=== PATIENT | female | born 1965 | race Caucasian/White ===

== ENCOUNTER 2016-11-24 16:31 | Emergency (ER) | payer MEDICAID ==
[~2016-11-24] VITALS: Ht 149.9 cm; Wt 90.9 kg
[~2016-11-24 16:31] MED LIST: ALIGN PO; ASCO500T12 PO; CEFD300C37 PO; DOCU-30 PO; ERGO500017 PO; ESCI20TA10 PO; FURO-93 PO; GABA-827 PO; GI Cocktail PO; HYDR2TAB40 PO; LIDOCAINE 2% TP; LORA0.5T PO; MORP15TA3 PO; MORP30TA81 PO; ONDA4TAB7 PO; OREGANO OIL PO; PANT20TA2 PO; POLY17PO3 PO; PRED2.5T PO; PRED5TAB PO; SPIR50TA2 PO; TIZA2CAP PO; TIZA4TAB PO; [UNRECOGNIZED DRUG - CODE] IM
[2016-11-24] MEDS ORDERED: OXYcodone/APAP 5/325MG TABLET PO ONE (17:00)
[2016-11-24] MEDS ORDERED: OXYcodone/APAP 5/325MG TABLET ONE (17:03)
[2016-11-24] MEDS ORDERED: ONDANSETRON 2MG/ML, 2ML ONE (17:09)
[2016-11-24] MEDS ORDERED: ONDANSETRON 2MG/ML, 2ML IVPush ONE (17:30)
[2016-11-24] MEDS ORDERED: KETOROLAC 30 MG/1 ML ONE (18:59)
[2016-11-24] MEDS ORDERED: KETOROLAC 30 MG/1 ML IVPush ONE (19:00)
[2016-11-24 20:16] VITALS: BP 117/82
== END 2016-11-24 20:20 | disposition home or self-care (01) ==
LOC: ED 20:18
DX: S70.02XA Contusion of left hip, initial encounter (principal); S20.212A Contusion of left front wall of thorax, initial encounter; M19.90 Unspecified osteoarthritis, unspecified site; Z88.0 Allergy status to penicillin; Z88.1 Allergy status to other antibiotic agents; F17.210 Nicotine dependence, cigarettes, uncomplicated; F15.10 Other stimulant abuse, uncomplicated; Z88.8 Allergy status to other drugs, medicaments and biological substances; W10.9XXA Fall (on) (from) unspecified stairs and steps, initial encounter; Y93.89 Activity, other specified; Y99.8 Other external cause status; Y92.89 Other specified places as the place of occurrence of the external cause
CPT/HCPCS: 71101; 72110; 73502; 96374; 96375; 99284; J1885; J2405

== ENCOUNTER 2017-01-27 22:25 | Emergency (ER) | payer MEDICAID ==
[~2017-01-27] VITALS: Ht 149.9 cm; Wt 93.4 kg
[2017-01-27] MEDS ORDERED: SODIUM CHLORIDE 0.9% 1,000ML IVBOLUS ONE (23:00)
[2017-01-27] MEDS ORDERED: MORPHINE SULFATE 4 MG/ML, 1ML IVPush PRN (23:00)
[2017-01-27] MEDS ORDERED: ONDANSETRON 2MG/ML, 2ML IVPush ONE (23:00)
[2017-01-27] MEDS ORDERED: SODIUM CHLORIDE FLUSH 10ML SYR IVF ONE (23:00)
[2017-01-27] MEDS ORDERED: ONDANSETRON 2MG/ML, 2ML ONE (23:11)
[2017-01-27] MEDS ORDERED: MORPHINE SULFATE 4 MG/ML, 1ML ONE (23:11)
[2017-01-27 23:32] LABS: ASPARTATE AMINO TRANSFERASE 37 U/L (15-37); BLOOD UREA NITROGEN 16 mg/dL (7-18)
[2017-01-28 00:37] VITALS: BP 124/71
== END 2017-01-28 00:40 | disposition home or self-care (01) ==
LOC: ED 23:59
DX: K59.00 Constipation, unspecified (principal); R10.33 Periumbilical pain; R10.32 Left lower quadrant pain
CPT/HCPCS: 36415; 74020; 80053; 81003; 83690; 85025; 96361; 96374; 96375; 99285; J2405; J7030

== ENCOUNTER 2017-02-06 11:58 | Emergency (ER) | payer MEDICAID ==
[~2017-02-06] VITALS: Ht 149.9 cm; Wt 93.6 kg
[2017-02-06 12:00] VITALS: BP 150/90
[2017-02-06] MEDS ORDERED: ONDANSETRON ODT 4 MG ONE (12:48)
[2017-02-06] MEDS ORDERED: MECLIZINE CHEWABLE 25 MG TAB ONE (12:48)
[2017-02-06] MEDS ORDERED: MECLIZINE CHEWABLE 25 MG TAB PO ONE (13:00)
[2017-02-06] MEDS ORDERED: ONDANSETRON ODT 4 MG PO ONE (13:00)
== END 2017-02-06 13:22 | disposition home or self-care (01) ==
LOC: ED 12:39
DX: H66.91 Otitis media, unspecified, right ear (principal); Z90.49 Acquired absence of other specified parts of digestive tract; Z87.891 Personal history of nicotine dependence
CPT/HCPCS: 99283; Q0162

== ENCOUNTER 2017-02-07 20:06 | Emergency (ER) | payer MEDICAID ==
[~2017-02-07] VITALS: Ht 149.9 cm; Wt 93.5 kg
[2017-02-07] MEDS ORDERED: HYDROmorphone 1 MG/ML, 1ML IM ONE (20:30)
[2017-02-07] MEDS ORDERED: METHOCARBAMOL 750 MG TABLET PO ONE (20:30)
[2017-02-07] MEDS ORDERED: METHOCARBAMOL 750 MG TABLET ONE (20:54)
[2017-02-07] MEDS ORDERED: HYDROmorphone 1 MG/ML, 1ML ONE (20:54)
[2017-02-07 21:14] LABS: BLOOD UREA NITROGEN 18 mg/dL (7-18)
[2017-02-07] MEDS ORDERED: ONDANSETRON ODT 4 MG PO ONE (21:30)
[2017-02-07] MEDS ORDERED: ONDANSETRON ODT 4 MG ONE (21:32)
[2017-02-07 22:32] VITALS: BP 119/57
== END 2017-02-07 22:34 | disposition home or self-care (01) ==
LOC: ED 20:27
DX: M54.6 Pain in thoracic spine (principal); F17.200 Nicotine dependence, unspecified, uncomplicated; Z90.49 Acquired absence of other specified parts of digestive tract
CPT/HCPCS: 36415; 72072; 80048; 81003; 82040; 85025; 96372; 99285; J1170; Q0162

== ENCOUNTER 2017-08-08 17:48 | Emergency (ER) | payer MEDICAID ==
[~2017-08-08] VITALS: Ht 149.9 cm; Wt 95.8 kg
[~2017-08-08 17:48] MED LIST changes: +DOCU-131 PO; -DOCU-30 PO
[2017-08-08 17:49] VITALS: BP 154/91
[2017-08-08 19:34] LABS: BASOPHILS # (AUTO) 0.06 x10^3/uL (0-0.1); BASOPHILS % (AUTO) 1 % (0-1); EOSINOPHILS % (AUTO) 2 % (1-7); LYMPHOCYTES # (AUTO) 1.66 x10^3/uL (1-3.4); LYMPHOCYTES % (AUTO) 25 % (22-44); MD NO; MEAN CORPUSCULAR HEMOGLOBIN 28.5 pg (27.0-34.8); MEAN CORPUSCULAR VOLUME 86.6 fL (80-100); MEAN PLATELET VOLUME 8.6 fL (7.4-10.4); MONOCYTES % (AUTO) 11 % (2-9); NEUTROPHILS # (AUTO) 4.05 x10^3/uL (1.8-6.8); NEUTROPHILS % (AUTO) 62 % (42-75); PLATELET COUNT 144 x10^3/uL (130-400); RED BLOOD COUNT 4.86 x10^6/uL (3.82-5.3); RED CELL DISTRIBUTION WIDTH 15.3 % (9.6-15.2)
[2017-08-08 19:43] LABS: ALANINE AMINOTRANSFERASE 51 U/L (12-78); ALBUMIN 3.9 g/dL (3.4-5.0); ANION GAP 7 mmol/L (5-15); CALCIUM 8.5 mg/dL (8.5-10.1); CHLORIDE 103 mmol/L (98-107); CREATININE 1.07 mg/dL (0.55-1.02)
[2017-08-08 19:45] LABS: ALKALINE PHOSPHATASE 94 U/L (45-117); BILIRUBIN,TOTAL 0.6 mg/dL (0.2-1.0); TOTAL PROTEIN 7.8 g/dL (6.4-8.2)
[2017-08-08 20:10] LABS: CULTURE INDICATED? NO; HCG UR SG 1.015 (1.003-1.030); MICROSCOPIC NOT IND
[2017-08-08] MEDS ORDERED: OMNIPAQUE 350 MG/ML, 100ML BOTTLE ONE (23:14)
== END 2017-08-08 21:03 | disposition home or self-care (01) ==
LOC: ED 19:44
DX: R10.31 Right lower quadrant pain (principal); R10.32 Left lower quadrant pain; M54.5 Low back pain; Z90.49 Acquired absence of other specified parts of digestive tract
CPT/HCPCS: 36415; 74177; 80053; 81003; 81025; 83690; 85025; 99285; Q9967

== ENCOUNTER 2017-10-19 21:10 | Emergency (ER) | payer MEDICAID ==
[~2017-10-19] VITALS: Ht 149.9 cm; Wt 93.6 kg
[2017-10-19 21:59] LABS: MICROSCOPIC AUTO
[2017-10-19 22:03] LABS: BASOPHILS # (AUTO) 0.04 x10^3/uL (0-0.1); BASOPHILS % (AUTO) 1 % (0-1); EOSINOPHILS # (AUTO) 0.07 x10^3/uL (0-0.4); EOSINOPHILS % (AUTO) 1 % (1-7); LYMPHOCYTES # (AUTO) 1.42 x10^3/uL (1-3.4); LYMPHOCYTES % (AUTO) 21 % (22-44); MD NO; MEAN CORPUSCULAR HEMOGLOBIN 29.4 pg (27.0-34.8); MEAN CORPUSCULAR HGB CONC 33.8 g/dL (32.4-35.8); MEAN CORPUSCULAR VOLUME 86.8 fL (80-100); MEAN PLATELET VOLUME 8.7 fL (7.4-10.4); MONOCYTES # (AUTO) 0.85 x10^3/uL (0.2-0.8); MONOCYTES % (AUTO) 13 % (2-9); NEUTROPHILS # (AUTO) 4.25 x10^3/uL (1.8-6.8); NEUTROPHILS % (AUTO) 64 % (42-75); PLATELET COUNT 149 x10^3/uL (130-400); RED BLOOD COUNT 4.31 x10^6/uL (3.82-5.3); RED CELL DISTRIBUTION WIDTH 15.1 % (9.6-15.2)
[2017-10-19 22:07] LABS: CULTURE INDICATED? YES
[2017-10-19 22:14] LABS: ANION GAP 10 mmol/L (5-15); CALCIUM 8.7 mg/dL (8.5-10.1); CHLORIDE 101 mmol/L (98-107); CREATININE 1.36 mg/dL (0.55-1.02)
[2017-10-19 22:36] VITALS: BP 124/68
== END 2017-10-19 23:18 | disposition home or self-care (01) ==
LOC: ED 21:46
DX: R10.84 Generalized abdominal pain (principal); I50.9 Heart failure, unspecified; G62.9 Polyneuropathy, unspecified; Z90.49 Acquired absence of other specified parts of digestive tract
CPT/HCPCS: 36415; 74176; 80048; 81001; 85025; 87086; 99285

== ENCOUNTER 2019-07-17 16:14 | Emergency (ER) | payer MEDICAID ==
[~2019-07-17] VITALS: Ht 149.9 cm; Wt 94.9 kg
[~2019-07-17 16:14] MED LIST changes: +ASCO-254 PO; -ASCO500T12 PO; +MORP-29 PO; -MORP15TA3 PO; +POLY17PO29 PO; -POLY17PO3 PO; -SPIR50TA2 PO; +SPIR50TA4 PO; -TIZA4TAB PO; +TIZA4TAB2 PO
[2019-07-17] MEDS ORDERED: ONDANSETRON ODT 4 MG PO ONE (17:00)
[2019-07-17] MEDS ORDERED: ONDANSETRON ODT 4 MG ONE (17:49)
--- NOTE | 2019-07-17 17:54 | NUR ---
MEDICATED PER EMAR
[2019-07-17] MEDS ORDERED: KETOROLAC 30 MG/1 ML ONE (17:57)
[2019-07-17] MEDS ORDERED: KETOROLAC 30 MG/1 ML IM ONE (18:00)
[2019-07-17 18:31] VITALS: BP 138/71
== END 2019-07-17 18:33 | disposition home or self-care (01) ==
LOC: ED 18:25
DX: M25.512 Pain in left shoulder (principal); Z90.49 Acquired absence of other specified parts of digestive tract
CPT/HCPCS: 73030; 96372; 99283; J1885; Q0162

== ENCOUNTER 2020-01-14 19:56 | Emergency (ER) | payer MEDICAID ==
[~2020-01-14] VITALS: Ht 149.9 cm; Wt 90.8 kg
[~2020-01-14 19:56] MED LIST changes: -ASCO-254 PO; +ASCO500T93 PO
[2020-01-14 20:04] VITALS: BP 146/75
[2020-01-14] MEDS ORDERED: KETOROLAC 30 MG/1 ML ONE (20:25)
[2020-01-14] MEDS ORDERED: ONDANSETRON ODT 4 MG ONE (20:25)
[2020-01-14] MEDS ORDERED: CYCLOBENZAPRINE 10 MG TABLET ONE (20:25)
[2020-01-14] MEDS ORDERED: HYDROcodone/APAP 5/325 TABLET ONE (20:26)
--- NOTE | 2020-01-14 20:29 | NUR ---
PT MEDICATED PER SEP. PT UPDATED ON POC.
[2020-01-14] MEDS ORDERED: CYCLOBENZAPRINE 10 MG TABLET PO ONE (20:30)
[2020-01-14] MEDS ORDERED: KETOROLAC 30 MG/1 ML IM ONE (20:30)
[2020-01-14] MEDS ORDERED: ONDANSETRON ODT 4 MG PO ONE (20:30)
[2020-01-14] MEDS ORDERED: HYDROcodone/APAP 5/325 TABLET PO ONE (20:30)
--- NOTE | 2020-01-14 20:32 | NUR ---
PT TO IMAGING AT THIS TIME.
== END 2020-01-14 21:13 | disposition home or self-care (01) ==
LOC: ED 21:00
DX: M54.42 Lumbago with sciatica, left side (principal); G89.29 Other chronic pain; I11.0 Hypertensive heart disease with heart failure; I50.9 Heart failure, unspecified; E66.9 Obesity, unspecified; Z90.49 Acquired absence of other specified parts of digestive tract; Z90.89 Acquired absence of other organs; Z87.891 Personal history of nicotine dependence; Z88.0 Allergy status to penicillin; Z88.8 Allergy status to other drugs, medicaments and biological substances
CPT/HCPCS: 72110; 96372; 99284; J1885; Q0162

== ENCOUNTER 2020-10-31 15:02 | Emergency (ER) | payer MEDICAID ==
[~2020-10-31] VITALS: Ht 149.9 cm; Wt 90.0 kg
[~2020-10-31 15:02] MED LIST changes: -POLY17PO29 PO; +POLY17PO50 PO
--- NOTE | 2020-10-31 15:16 | NUR ---
PT BIB [facility] FROM HOME. PT WAS GETTING OUT OF BED THIS MORNING AND FELT A "POP" AND SHARP PAIN IN HER LEFT HIP/LOWER BACK. PAIN INCREASED WITH MOVEMENT. HX OF FALLS. PT RECEIVED 4MG ZOFRAN AND 100MCG FETYNAL COLLECTIONS REPRESENTATIVE. PT ABLE TO AMBULATE TO [facility] WITH ASSISTANCE. PT CONNECTED TO MONITORS. CALL LIGHT WITHIN REACH. NO NEEDS AT THIS TIME
[2020-10-31] MEDS ORDERED: KETOROLAC 30 MG/1 ML IVPush ONE (15:30)
[2020-10-31] MEDS ORDERED: DIAZEPAM 5 MG TABLET PO ONE (15:30)
[2020-10-31] MEDS ORDERED: DIAZEPAM 5 MG TABLET ONE (15:38)
[2020-10-31] MEDS ORDERED: KETOROLAC 30 MG/1 ML ONE (15:38)
--- NOTE | 2020-10-31 15:40 | NUR ---
PT TO RADIOLOGY
[2020-10-31] MEDS ORDERED: ONDANSETRON 2MG/ML, 2ML ONE ×2 (15:51→15:56)
[2020-10-31] MEDS ORDERED: ONDANSETRON 2MG/ML, 2ML IVPush ONE (16:00)
--- NOTE | 2020-10-31 16:48 | NUR ---
PA AT BS
[2020-10-31 17:05] VITALS: BP 129/78
--- NOTE | 2020-10-31 17:05 | NUR ---
PT LAYING ON GE RODGERS/PERNELL. PT STATES PAIN HAS DECREASED AND MORE COMFORTABLE. NO NEEDS AT THIS TIME. CALL LIGHT WITHIN REACH
--- NOTE | 2020-10-31 17:19 | NUR ---
Patient given discharge instructions and they have confirmed that they understand the instructions. Patient ambulatory with steady gait.
== END 2020-10-31 17:20 | disposition home or self-care (01) ==
LOC: ED 17:00
DX: S39.012A Strain of muscle, fascia and tendon of lower back, initial encounter (principal); M54.42 Lumbago with sciatica, left side; I50.9 Heart failure, unspecified; E66.9 Obesity, unspecified; Z68.41 Body mass index [BMI] 40.0-44.9, adult; Z90.49 Acquired absence of other specified parts of digestive tract; Z90.89 Acquired absence of other organs; X58.XXXA Exposure to other specified factors, initial encounter; Y93.89 Activity, other specified; Y92.89 Other specified places as the place of occurrence of the external cause; Y99.8 Other external cause status
CPT/HCPCS: 72110; 73502; 96374; 96375; 99284; J1885; J2405

== ENCOUNTER 2020-11-23 21:54 | Emergency (ER) | payer MEDICAID ==
--- NOTE | 2020-11-23 22:53 | NUR ---
PATIENT LEFT BEFORE TRIAGE.
== END 2020-11-23 22:55 | disposition left against medical advice (07) ==
LOC: ED 22:00
DX: R10.9 Unspecified abdominal pain (principal); M54.9 Dorsalgia, unspecified; Z53.21 Procedure and treatment not carried out due to patient leaving prior to being seen by health care provider

== ENCOUNTER 2021-01-19 17:07 | Emergency (ER) | payer MEDICAID ==
[~2021-01-19] VITALS: Ht 149.9 cm; Wt 95.0 kg
--- NOTE | 2021-01-19 17:26 | NUR ---
THIS IS A 55 YO F W/ C/O LT HIP PAIN AFTER BENDING AND HEARING A POP SOUND. PT REPORTS ABLE TO AMBULATE AND BARE WEIGHT BUT PAINFUL. HX OF SX ON SAME HIP. PT RESTING ON GURNEY W/ CALL LIGHT IN REACH AND SIDE RAILS UPX2, FAMILY AT BEDSIDE. RESP EVEN AND UNLABORED, GE.
[2021-01-19] MEDS ORDERED: PROMETHAZINE 25 MG/ML, 1ML IM ONE (17:30)
[2021-01-19] MEDS ORDERED: HYDROmorphone 1 MG/ML, 1ML INJ IM ONE (17:30)
[2021-01-19] MEDS ORDERED: PROMETHAZINE 25 MG/ML, 1ML ONE (17:55)
[2021-01-19] MEDS ORDERED: HYDROmorphone 1 MG/ML, 1ML INJ ONE ×3 (17:55→20:17)
--- NOTE | 2021-01-19 19:03 | NUR ---
REPORT RECIEVED FROM BRYANT PATRICK
--- NOTE | 2021-01-19 19:29 | NUR ---
PT LAYING IN BED, FRIEND AT BEDSIDE, PT STARTED ON OXYGEN VIA NASAL CANULA AT 2LPM, PT LAYING ON RIGHT SIDE SO SHE DOESNT FEEL PAIN IN HER LEFT LEG, ALL NEEDS IN REACH, CALL LIGHT IN REACH, BED IN LOW POSITION WITH SIDE RAILS UP
[2021-01-19] MEDS ORDERED: HYDROmorphone 1 MG/ML, 1ML INJ IV ONE ×3 (19:30→20:30)
[2021-01-19 21:08] LABS: BASOPHILS % (AUTO) 1 % (0-1); EOSINOPHILS % (AUTO) 2 % (1-7); LYMPHOCYTES % (AUTO) 26 % (22-44); MEAN CORPUSCULAR HEMOGLOBIN 28.9 pg (27.0-34.8); MEAN CORPUSCULAR HGB CONC 33.5 g/dL (32.4-35.8); MEAN PLATELET VOLUME 8.8 fL (7.4-10.4); MONOCYTES % (AUTO) 11 % (2-9); NEUTROPHILS % (AUTO) 60 % (42-75); PLATELET COUNT 141 x10^3/uL (130-400); RED BLOOD COUNT 4.72 x10^6/uL (3.82-5.3); RED CELL DISTRIBUTION WIDTH 16.2 % (9.6-15.2)
[2021-01-19 21:12] LABS: ANION GAP 5 mmol/L (5-15); CALCIUM 8.7 mg/dL (8.5-10.1); CHLORIDE 106 mmol/L (98-107); CREATININE 1.15 mg/dL (0.55-1.02)
[2021-01-19 21:35] LABS: MICROSCOPIC NOT IND
[2021-01-19] MEDS ORDERED: HYDROcodone/APAP 10/325 MG TABLET PO ONE (22:30)
[2021-01-19] MEDS ORDERED: HYDROcodone/APAP 10/325 MG TABLET ONE (22:46)
--- NOTE | 2021-01-20 00:02 | NUR ---
pt states she "cant handle norco", this RN asked MD if it is possible to change script to oxycodone, changing script, pt ready for discharge
--- NOTE | 2021-01-20 00:03 | NUR ---
MD spoke with pt about POC, pt agreed to POC
[2021-01-20 00:04] VITALS: BP 115/63
== END 2021-01-20 00:18 | disposition home or self-care (01) ==
LOC: ED 17:44
DX: M47.896 Other spondylosis, lumbar region (principal); M54.5 Low back pain; I10 Essential (primary) hypertension; Z87.891 Personal history of nicotine dependence; Z88.0 Allergy status to penicillin
CPT/HCPCS: 36415; 72148; 76830; 80048; 81003; 85025; 96372; 96374; 96376; 99285; J1170; J2550

== ENCOUNTER 2021-01-21 18:46 | Emergency (ER) | payer MEDICAID ==
[~2021-01-21] VITALS: Ht 149.9 cm; Wt 91.0 kg
--- NOTE | 2021-01-21 18:50 | NUR ---
LAB AT BEDSIDE FOR FULL SET OF LABS
[2021-01-21] MEDS ORDERED: SODIUM CHLORIDE FLUSH 10ML SYR IVF ONE (19:00)
--- NOTE | 2021-01-21 19:04 | NUR ---
BIB BY [facility] CODE 3 FOR SUSPECTED AAA. PATIENT WITH ACUTE BACK PAIN AND TOLD EMS SHE HAD A HISTORY OF ABDOMINAL ANEURYSM. ON ARRIVAL: PALE/DIAPHORETIC. HOWEVER, EQUAL CAP REFILL TO BILATERAL LEGS. RIGHT ARM MANUAL SBP90, LEFT ARM MANUAL SBP 110. HR 75 BILATERAL LARGE BORE PIVS PLACED-1L NS BOLUS OBTAINED ECG OBTAINED ERP OBTAINED ABDOMINAL FAST EXAM VIA ULTRASOUND-NO OBVIOUS BLEED
--- NOTE | 2021-01-21 19:11 | NUR ---
TO IMAGINING FOR [facility] WORKUP
[2021-01-21 19:20] LABS: BASOPHILS % (AUTO) 1 % (0-1); EOSINOPHILS % (AUTO) 2 % (1-7); LYMPHOCYTES % (AUTO) 26 % (22-44); MEAN CORPUSCULAR HEMOGLOBIN 28.7 pg (27.0-34.8); MEAN CORPUSCULAR HGB CONC 33.2 g/dL (32.4-35.8); MEAN PLATELET VOLUME 8.9 fL (7.4-10.4); MONOCYTES % (AUTO) 10 % (2-9); NEUTROPHILS % (AUTO) 61 % (42-75); PLATELET COUNT 105 x10^3/uL (130-400); RED BLOOD COUNT 4.62 x10^6/uL (3.82-5.3); RED CELL DISTRIBUTION WIDTH 15.7 % (9.6-15.2)
[2021-01-21 19:30] LABS: ALBUMIN 3.3 g/dL (3.4-5.0); ANION GAP 4 mmol/L (5-15); CHLORIDE 106 mmol/L (98-107); CREATININE 0.83 mg/dL (0.55-1.02)
[2021-01-21] MEDS ORDERED: OMNIPAQUE 350 MG/ML, 100ML BOTTLE ONE (19:33)
[2021-01-21 19:40] LABS: INTERNATIONAL NORMALIZED RATIO 1.22 (0.93-1.1)
[2021-01-21] MEDS ORDERED: ONDANSETRON 2MG/ML, 2ML IVPush ONE (20:00)
[2021-01-21 20:19] LABS: MICROSCOPIC NOT IND
--- NOTE | 2021-01-21 20:34 | NUR ---
STRAIGHT CATHED FOR UA TO R/O KIDNEY STONES OTHERWISE NO CHANGES IN EXAM (CV STABLE) TO MEDICATE FOR PAIN SHORTLY 1L NS BOLUS COMPLETE
[2021-01-21] MEDS ORDERED: ONDANSETRON 2MG/ML, 2ML ONE (20:38)
[2021-01-21] MEDS ORDERED: MORPHINE SULFATE 4 MG/ML, 1ML ONE ×2 (20:38→22:59)
[2021-01-21] MEDS: MORPHINE SULFATE 4 MG/ML, 1ML IVPush PRN ×2 (20:39→23:03)
[2021-01-21] MEDS ORDERED: SODIUM CHLORIDE 0.9% 1,000ML IVBOLUS ONE (21:00)
[2021-01-21 23:05] VITALS: BP 115/59
== END 2021-01-21 23:50 ==
LOC: ED 23:00
DX: S39.012A Strain of muscle, fascia and tendon of lower back, initial encounter (principal); M47.816 Spondylosis without myelopathy or radiculopathy, lumbar region; I11.0 Hypertensive heart disease with heart failure; I50.9 Heart failure, unspecified; Z87.891 Personal history of nicotine dependence; Z90.49 Acquired absence of other specified parts of digestive tract; Z86.19 Personal history of other infectious and parasitic diseases; X58.XXXA Exposure to other specified factors, initial encounter; Y93.89 Activity, other specified; Y92.89 Other specified places as the place of occurrence of the external cause; Y99.8 Other external cause status
CPT/HCPCS: 36415; 71275; 74175; 74176; 80048; 81003; 82040; 85025; 85610; 85730; 93005; 96361; 96374; 96375; 96376; 99285; J2270; J2405; J7030; Q9967

== ENCOUNTER 2021-04-20 13:56 | Emergency (ER) | payer MEDICAID ==
[~2021-04-20] VITALS: Ht 149.9 cm; Wt 97.0 kg
[2021-04-20] MEDS ORDERED: MORPHINE SULFATE 4 MG/ML, 1ML ONE ×2 (14:53→16:52)
[2021-04-20] MEDS ORDERED: ONDANSETRON 2MG/ML, 2ML ONE (14:53)
[2021-04-20] MEDS: MORPHINE SULFATE 4 MG/ML, 1ML IVPush PRN ×2 (14:58→16:54)
[2021-04-20] MEDS ORDERED: ONDANSETRON 2MG/ML, 2ML IVPush ONE (15:00)
[2021-04-20] MEDS ORDERED: SODIUM CHLORIDE FLUSH 10ML SYR IVF ONE (15:00)
--- NOTE | 2021-04-20 15:13 | NUR ---
PT CAME IN CO BILAT LOWER LEG REDNESS, SWELLING AND PAIN. PT ALSO CO OF BILAT FLANK PAIN. STARTED ABOUT 5 DAYS AGO. PT RESTING IN GURNEY. MEDICAED PER SEP. US BEDSIDE. LABS DRAWN
[2021-04-20 15:18] LABS: BASOPHILS % (AUTO) 1 % (0-1); EOSINOPHILS % (AUTO) 2 % (1-7); LYMPHOCYTES % (AUTO) 23 % (22-44); MEAN CORPUSCULAR HEMOGLOBIN 28.8 pg (27.0-34.8); MEAN CORPUSCULAR HGB CONC 33.5 g/dL (32.4-35.8); MEAN PLATELET VOLUME 8.4 fL (7.4-10.4); MONOCYTES % (AUTO) 12 % (2-9); NEUTROPHILS % (AUTO) 62 % (42-75); PLATELET COUNT 120 x10^3/uL (130-400); RED BLOOD COUNT 4.27 x10^6/uL (3.82-5.3); RED CELL DISTRIBUTION WIDTH 15.3 % (9.6-15.2)
[2021-04-20 15:21] LABS: MICROSCOPIC INDICATED
[2021-04-20 15:28] LABS: ALANINE AMINOTRANSFERASE 48 U/L (12-78); ALBUMIN 3.3 g/dL (3.4-5.0); ANION GAP 5 mmol/L (5-15); CALCIUM 8.9 mg/dL (8.5-10.1); CHLORIDE 107 mmol/L (98-107); CREATININE 1.09 mg/dL (0.55-1.02)
[2021-04-20 15:32] LABS: ALKALINE PHOSPHATASE 94 U/L (45-117); BILIRUBIN,TOTAL 0.8 mg/dL (0.2-1.0); TOTAL PROTEIN 7.3 g/dL (6.4-8.2)
[2021-04-20 16:16] VITALS: BP 127/70
--- NOTE | 2021-04-20 16:59 | NUR ---
Patient given discharge instructions and they have confirmed that they understand the instructions. Patient ambulatory with steady gait. NAD, all questions answered appropriately, denies additional needs at this time. No personal belongings left in room after discharge. Patients roomate to pick pt up
== END 2021-04-20 17:01 | disposition home or self-care (01) ==
LOC: ED 16:55
DX: I83.12 Varicose veins of left lower extremity with inflammation (principal); I83.11 Varicose veins of right lower extremity with inflammation; N30.00 Acute cystitis without hematuria; R94.31 Abnormal electrocardiogram [ECG] [EKG]; I11.0 Hypertensive heart disease with heart failure; Z87.891 Personal history of nicotine dependence
CPT/HCPCS: 36415; 71045; 80053; 81001; 83690; 83880; 85025; 87086; 93005; 93970; 96374; 96375; 96376; 99285; J2270; J2405

== ENCOUNTER 2021-04-22 09:45 | Emergency (ER) | payer MEDICAID ==
[~2021-04-22] VITALS: Ht 149.9 cm; Wt 97.6 kg
--- NOTE | 2021-04-22 10:11 | NUR ---
THIS IS A 56 YEAR OLD FEMALE WHO C/O OF ABD PAIN AND FEET REDNESS AND SWELLING. PT STATE DOXICYCLINE MADE HER FEEL SICK AND STOPPED TAKING IT. UP TO BATHROOM OBTAINED UA
[2021-04-22] MEDS ORDERED: KETOROLAC 30 MG/1 ML ONE (10:18)
[2021-04-22 10:26] LABS: MICROSCOPIC INDICATED
[2021-04-22] MEDS ORDERED: KETOROLAC 30 MG/1 ML IM ONE (10:30)
[2021-04-22 10:38] LABS: BASOPHILS % (AUTO) 1 % (0-1); EOSINOPHILS % (AUTO) 3 % (1-7); LYMPHOCYTES % (AUTO) 26 % (22-44); MEAN CORPUSCULAR HEMOGLOBIN 29.1 pg (27.0-34.8); MEAN CORPUSCULAR HGB CONC 33.6 g/dL (32.4-35.8); MEAN PLATELET VOLUME 8.5 fL (7.4-10.4); MONOCYTES % (AUTO) 11 % (2-9); NEUTROPHILS % (AUTO) 60 % (42-75); PLATELET COUNT 102 x10^3/uL (130-400); RED BLOOD COUNT 4.24 x10^6/uL (3.82-5.3); RED CELL DISTRIBUTION WIDTH 15.2 % (9.6-15.2)
[2021-04-22 10:48] LABS: ALANINE AMINOTRANSFERASE 48 U/L (12-78); ALBUMIN 2.9 g/dL (3.4-5.0); ANION GAP 4 mmol/L (5-15); CALCIUM 8.4 mg/dL (8.5-10.1); CHLORIDE 108 mmol/L (98-107); CREATININE 0.83 mg/dL (0.55-1.02)
[2021-04-22 10:50] LABS: ALKALINE PHOSPHATASE 98 U/L (45-117); BILIRUBIN,TOTAL 0.5 mg/dL (0.2-1.0); TOTAL PROTEIN 6.5 g/dL (6.4-8.2)
--- NOTE | 2021-04-22 11:29 | NUR ---
Andres kohler in [facility] - 04/22/21 at 1129 by STEPHENIE PT TO MRI
--- NOTE | 2021-04-22 13:18 | NUR ---
PT TO CT SCAN
[2021-04-22] MEDS ORDERED: CEFTRIAXONE 1,000 MG IM ONE (14:00)
[2021-04-22] MEDS ORDERED: HYDROcodone/APAP 5/325 TABLET PO ONE (14:00)
[2021-04-22] MEDS ORDERED: CEFTRIAXONE 1,000 MG ONE (14:12)
[2021-04-22] MEDS ORDERED: HYDROcodone/APAP 5/325 TABLET ONE (14:13)
--- NOTE | 2021-04-22 14:16 | NUR ---
MEDICATED FOR PAIN 03/05 AT THIS TIME
[2021-04-22] MEDS ORDERED: OMNIPAQUE 350 MG/ML, 100ML BOTTLE ONE (14:48)
[2021-04-22 14:50] VITALS: BP 109/64
--- NOTE | 2021-04-22 15:03 | NUR ---
Patient/Caregiver given discharge instructions and they have confirmed that they understand the instructions. Patient ambulatory with steady gait. NAD, all questions answered appropriately, denies additional needs at this time. No personal belongings left in room after discharge.
== END 2021-04-22 15:04 | disposition home or self-care (01) ==
LOC: ED 09:50
DX: N30.00 Acute cystitis without hematuria (principal); I11.0 Hypertensive heart disease with heart failure; I50.9 Heart failure, unspecified; M19.90 Unspecified osteoarthritis, unspecified site
CPT/HCPCS: 36415; 74177; 76830; 80053; 81001; 85025; 87086; 96372; 99285; J0696; J1885; Q9967